=== PATIENT | male | born 1940 | race American Indian/Alaskan Native ===

== ENCOUNTER 2020-05-28 23:32 | Emergency (ER) | payer OTHER ==
[~2020-05-28 23:32] MED LIST: EPINEPHrine 1 MG/10 ML SYRINGE ONE; SODIUM BICARB 8.4% 50 MEQ/50 ML SYRINGE IV ONE
--- NOTE | 2020-05-29 00:12 | Emergency Department Report ---
ED CPR HPI - General Stated Complaint: CARDIAC ARREST Time Seen by Provider: 05/29/20 00:04 - History of Present Illness Initial Comments: 80-year-old male, history of hypertension and COPD, presents to ED in cardiac arrest. EMS reports patient's said that patient went into the bathroom. She later heard a thud, went into check on him and patient was unresponsive. EMS was called. Patient was in PEA upon arrival. He was intubated by EMS. Patient was given epi x4, sodium bicarb x1. Patient then went into V. fib and was defibrillated x1. Patient arrives to ED still in cardiac arrest. Total downtime has been approximately 40 minutes. Complaint: other (Collapsed) -: minute(s) (40) Place: home Bystander CPR Performed: No Initial Findings in the Field: unresponsive, no respirations, PEA ROSC in the Field: No Treatments Prior to Arrival: intubation, chest compressions, defribrillated shocks # (x1), epinephrine mgs # (x4), sodium bicarbonate (x1) ED Review of Systems ROS: Stated complaint: CARDIAC ARREST Other details as noted in HPI Comment: Unobtainable due to pts medical conditions ED Physical Exam - Head Head exam: Present: atraumatic, normocephalic - Eye Pupils: Present: other (Pupils fixed bilaterally) - ENT ENT exam: Present: other (ET tube present, does not appear to be in place as it is pulled out past the 20 cm theresa) - Neck Neck exam: Present: normal inspection - Respiratory Respiratory exam: Present: other (No spontaneous breaths) - Cardiovascular Cardiovascular Exam: Present: other (No palpable pulse) - GI/Abdominal GI/Abdominal exam: Present: soft. Absent: distended - Extremities Exam Extremities exam: Present: normal inspection - Neurological Exam Neurological exam: Present: other (GCS 3T) - Skin Skin exam: Present: warm, dry, intact, normal color - Intubation Laryngoscope: fiberoptic video scope ET Tube Size: 7.5 Tube Secured Depth (cm): 22 Tube Secured Location: lips Tube Placement Confirmation: visualized tube passing t, equal breath sounds bilat, no breath sounds over epi, confirmation by capnometr Patient Tolerated Procedure: well Intubation Complications: none ED Medical Decision Making - Medical Decision Making ACLS was continued upon arrival. I reintubated patient as ET tube from EMS was not properly in place. Patient regained and lost pulses multiple times. Ultimately, patient did not regain ROSC, and time of was called at 23:57. Please see code sheet for details. - Differential Diagnosis Anoxic brain injury, PE, CVA, ACS Critical Care Time: Yes Critical care time in (mins) excluding proc time.: 35 Critical care attestation.: If time is entered above; I have spent that time in minutes in the direct care of this critically ill patient, excluding procedure time. Critical Care Time: 35 min ED Disposition Clinical Impression: Cardiac arrest Disposition: DC-20 Is pt being admited?: No Condition: Stable
== END 2020-05-29 02:20 ==
LOC: ED 23:32
DX: I46.9 Cardiac arrest, cause unspecified (principal)
CPT/HCPCS: 31500; 92950; 99285; J0171